=== PATIENT | male | born 1950 | race Caucasian/White ===

== ENCOUNTER 2020-08-11 23:00 | Emergency (ER) | payer MEDICARE ==
[2020-08-11] MEDS ORDERED: Ketorolac Tromethamine 30 MG/ML VIAL ONE (23:23)
[2020-08-11 23:43] LABS: #Basophils 0.1 thou/uL (0.0-0.2); #Eosinphils 0.3 thou/uL (0.0-0.7); #Lymphocytes 1.2 thou/uL (1.20-3.40); #Monocytes 0.7 thou/uL (0.11-0.59); #Neutrophils 3.3 thou/uL (1.40-6.50); %Basophils 1.2 % (0.0-1.0); %Eosinophils 5.6 % (0.0-10.0); %Lymphocytes 20.9 % (21.0-51.0); %Monocytes 12.4 % (0.0-10.0); %Neutrophils 59.8 % (42.0-75.0); Hemoglobin 17.1 g/dL (14.0-18.0); Mean Corpuscular HGB CONC 33.5 g/dL (32.0-36.0); Mean Corpuscular Hemoglobin 31.2 pg (27.0-31.0); Mean Corpuscular Volume 93.1 fL (78.0-98.0); Mean Platelet Volume 8.1 fL (7.4-10.4); Platelet Count 234 thou/uL (130-400); RBC Distribution Width 12.3 % (11.5-14.5); Red Blood Cell (RBC) Count 5.49 mill/uL (4.70-6.10); White Blood Cell (WBC) Count 5.6 thou/uL (4.8-10.8)
[2020-08-11 23:45] LABS: Bilirubin Negative (Negative); Blood, Urine Negative (Negative); Clarity Clear (Clear); Glucose, Urine (Dipstick) Negative (Negative); Ketone, Urine Negative (Negative); Leukocyte Negative (Negative); Nitrite Negative (Negative); Protein, Urine (Dipstick) Negative (Neg-Trace); Urobilinogen 0.2 mg/dL (Less than 2)
[2020-08-12] LABS: ALT (SGPT) 18 U/L (8-55); AST (SGOT) 20 U/L (5-34); Albumin 4.2 g/dL (3.4-4.8); Alkaline Phosphatase 56 U/L (40-110); Anion Gap 14 mmol/L (10-20); BUN (Urea Nitrogen) 20 mg/dL (8.4-25.7); Bilirubin, Total 1.1 mg/dL (0.2-1.2); Calc. Creatinine Clearance 0 mL/min (70-130); Calcium 9.1 mg/dL (7.8-10.44); Carbon Dioxide 25 mmol/L (23-31); Chloride 102 mmol/L (98-107); Globulin 2.7 g/dL (2.4-3.5); Glucose 106 mg/dL (80-115); Potassium 3.9 mmol/L (3.5-5.1); Protein, Total 6.9 g/dL (5.8-8.1); Sodium 137 mmol/L (136-145)
--- NOTE | 2020-08-12 08:19 | CT ---
PRELIMINARY REPORT/[facility]/EMERGENCY AFTER HOURS PROCEDURE: EXAM: CT Abdomen and Pelvis with and without Intravenous Contrast CLINICAL HISTORY: RLQ-RIGHT FLANK PAIN THAT RADIATES TO RIGHT LEG / STATES IT ONLY HURTS AT NIGHT FOR 3-4 DAYS TECHNIQUE: Axial computed tomography images of the abdomen and pelvis with and without intravenous contrast. CONTRAST: With and without; 100ML ISO 370 COMPARISON: None provided. FINDINGS: LUNG BASES: No basilar airspace consolidation or pleural effusion. The coronary arteries are calcified. LIVER: Several nonenhancing lesions scattered throughout the liver measuring up to 2.3 cm. The liver size i s normal. GALLBLADDER AND BILE DUCTS: Gallbladder wall thickening. No calcified stone. No ductal dilation. PANCREAS: Unremarkable. SPLEEN: Unremarkable. ADRENAL GLANDS: Unremarkable. KIDNEYS, URETERS, AND BLADDER: The right kidney is normal. 2.4 cm hypoenhancing lesion at the midpole of the left kidney, series 2 image 32. No hydronephrosis or nephrolithiasis. No ureteral or bladder calculi. STOMACH AND BOWEL: No obstruction. No wall thickening. No CT evidence of colitis or acute diverticulitis. Extensive col onic diverticulosis. APPENDIX: No CT evidence for appendicitis. PERITONEUM: No free fluid. No free air. LYMPH NODES: No lymphadenopathy. REPRODUCTIVE: Metallic seeds in the prostate. The seminal vesicles are normal. VASCULATURE: No aortic aneurysm. Atherosclerosis. BONES: No fracture or suspicious osseous abnormality. Multilevel degenerative disc disease. 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 ABDOMINAL WALL AND SOFT TISSUES: Findings left-sided inguinal hernia. Fat filled umbilical hernia. IMPRESSION: Nonspecific gallbladder wall thickening. Follow-up with ultrasound is recommended. Extensive colonic diverticulosis with no evidence of diverticulitis. Several cysts scattered throughout the liver. Simple cyst of the midpole of the left kidney. ELECTRONICALLY SIGNED BY: Harsh Recinos MD Aug 12, 2020 12:53:44 AM [employer] This report is intended for review by the ordering physician only, in accordance of law. If you recei ve this report in error, please call [facility] at [phone]. FINAL REPORT CT ABDOMEN AND PELVIS WITH AND WITHOUT CONTRAST: Date: 08/12/[address] of the abdomen and pelvis was done for evaluation of right lower quadrant pain that radiate s into the right leg. The initial study was done without IV contrast, then scans with IV contrast wer e employed, followed by reconstructions in various planes. There are no prior scans available for [facility]. The lung bases are clear except for some dependent atelectasis. Some coronary artery calcifications w ere noted in the left coronary circulation in particular. The liver is normal in size and has multipl e nonenhancing water density lesions present throughout mainly the left lobe. Hepatic cysts are more likely than not. The spleen, pancreas, and adrenal glands appear normal. The abdominal aorta shows no sign of aneurysm, only a little bit of arteriosclerotic change distally. The gallbladder is abnormal. The wall is thickened and enhances slightly with the addition of contras t. In the fundus of the gallbladder, there may be either a prominent fold or a polyp, but I do not se e any obvious stones. Further investigation with ultrasound is recommended. The gallbladder is somewh at generous in size measuring about 8.0 cm in length. The right kidney appears normal with no sign of mass, hydronephrosis or calculus. There is no eviden ce of ureteral calculi. The left kidney has an exophytic hypodense lesion in its middle third. It [place] s not enhance with IV contrast, but its mean CT numbers were in the 20s. While it is probably still j ust a simple exophytic cyst, this should be confirmed with ultrasound given the CT numbers. Otherwise , this kidney was unremarkable. The bowel shows no dilation or inflammatory change around it. Extensive diverticulosis is present, pa rticularly in the sigmoid region. There were no findings of diverticulitis. No free air or free fluid seen. A tiny fat-filled umbilical hernia was noted. CT of the pelvis shows pelvic masses, fluid collections, or inflammatory changes. There are presumabl y small seeds in the prostate. The prostate is 5.0 cm wide. A fat-filled left inguinal hernia was not ed. There are extensive degenerative changes in the patient's lumbar spine. At L5-S1 in particular, there may be a disc osteophyte protrusion centrally and narrowing of the foramina bilaterally. Given the p atient's symptoms, a MRI might be helpful in determining if there is any neural impingement as a caus e for some of the patient's symptoms. IMPRESSION: 1. Hepatic hypodensities, most likely small cysts. Ultrasound recommended for confirmation. 2. Somewhat prominent sized gallbladder with enhancing thickened marte. Ultrasound recommended to ru le out cholecystitis. 3. 1.8 cm exophytic hypodense lesion of the left kidney, not meeting perfect criteria for a cyst, bu t most likely that is what it is. Confirmatory ultrasound recommended. 4. Diverticulosis without findings of diverticulitis. 5. Lumbar degenerative change, particularly at L5-S1. Consider follow-up MRI. Report in agreement with preliminary reading by [facility]. POS: HOME
== END 2020-08-12 01:12 | disposition home or self-care (01) ==
LOC: BURERS 23:00
DX: R10.31 Right lower quadrant pain (principal)
CPT/HCPCS: 74178; 80053; 81003; 85025; J1885

== ENCOUNTER → 2021-11-10 | Emergency (ER) | payer MEDICARE ==
[~2021-11-10] MED LIST: Acetaminophen 500 MG TAB ONE; Aspirin Chewable 81 MG TAB ONE; Nitroglycerin 0.4 MG TAB 1 EACH ONE
[2021-11-10 10:21] LABS: #Basophils 0.1 thou/uL (0.0-0.2); #Eosinphils 0.1 thou/uL (0.0-0.7); #Lymphocytes 0.9 thou/uL (1.20-3.40); #Monocytes 0.4 thou/uL (0.11-0.59); %Basophils 1.7 % (0.0-1.0); %Eosinophils 1.4 % (0.0-10.0); %Monocytes 8.1 % (0.0-10.0); %Neutrophils 67.9 % (42.0-75.0); Hemoglobin 15.4 g/dL (14.0-18.0); Mean Corpuscular HGB CONC 33.4 g/dL (32.0-36.0); Mean Corpuscular Hemoglobin 30.8 pg (27.0-31.0); Mean Corpuscular Volume 92.3 fL (78.0-98.0); Mean Platelet Volume 8.3 fL (7.4-10.4); Platelet Count 243 thou/uL (130-400); RBC Distribution Width 12.5 % (11.5-14.5); Red Blood Cell (RBC) Count 4.99 mill/uL (4.70-6.10); White Blood Cell (WBC) Count 4.5 thou/uL (4.8-10.8)
[2021-11-10 10:35] LABS: ALT (SGPT) 25 U/L (8-55); AST (SGOT) 22 U/L (5-34); Albumin 4.3 g/dL (3.4-4.8); Alkaline Phosphatase 59 U/L (40-110); Anion Gap 15 mmol/L (10-20); BUN (Urea Nitrogen) 21 mg/dL (8.4-25.7); Calc. Creatinine Clearance 0 mL/min (70-130); Calcium 9.4 mg/dL (7.8-10.44); Carbon Dioxide 22 mmol/L (23-31); Chloride 104 mmol/L (98-107); Globulin 2.4 g/dL (2.4-3.5); Glucose 124 mg/dL (83-110); Potassium 4.3 mmol/L (3.5-5.1); Protein, Total 6.7 g/dL (5.8-8.1); Sodium 137 mmol/L (136-145)
[2021-11-10 21:27] LABS: SARS-CoV-2 PCR by NAA Not Detected (NotDetected)
== END ==
LOC: BURERS 09:46
DX: R20.0 Anesthesia of skin (principal); R29.810 Facial weakness; R07.9 Chest pain, unspecified; R29.702 NIHSS score 2; Z20.822 Contact with and (suspected) exposure to COVID-19; Z87.891 Personal history of nicotine dependence
CPT/HCPCS: 36415; 70450; 71046; 80053; 84484; 85025; 85379; 93005; 94760; U0003; U0005